=== PATIENT | female | born 1985 ===

== ENCOUNTER 2018-10-19 10:12 | Outpatient (CLI) | payer OTHER ==
[~2018-10-19 10:12] MED LIST: ATARAX10 MG; MEDROL2 MG; PLAQUENIL PO; SYMBICORT 16010.2 GM; TRANXENE T-TA3.75 MG; VINACAL B PREN1 EACH; XOPENEX HFA15 GM
== END 2018-10-19 10:20 | disposition home or self-care (01) ==
LOC: LAB 10:12
DX: R21 Rash and other nonspecific skin eruption (principal)